=== PATIENT | female | born 1995 | race Caucasian/White ===

== ENCOUNTER 2016-10-20 18:52 | Emergency (ER) | payer SELFPAY ==
[~2016-10-20] VITALS: Ht 162.6 cm; Wt 68.2 kg
[2016-10-20] MEDS ORDERED: IBUPROFEN 600 MG TABLET PO ONE (19:15)
[2016-10-20] MEDS ORDERED: ACETAMINOPHEN 500 MG TABLET PO ONE (19:15)
[2016-10-20] MEDS ORDERED: AMOXICILLIN TRIHYDRATE 250 MG CAPSULE PO ONE (20:15)
[2016-10-20] MEDS ORDERED: DEXAMETHASONE 4 MG TABLET PO ONE (20:15)
[2016-10-20 20:58] VITALS: BP 119/65
== END 2016-10-20 21:02 | disposition home or self-care (01) ==
LOC: EMS 18:55
DX: J02.0 Streptococcal pharyngitis (principal); F17.210 Nicotine dependence, cigarettes, uncomplicated
CPT/HCPCS: 81025; 99284; J8540

== ENCOUNTER 2016-10-30 18:22 | Emergency (ER) | payer SELFPAY ==
[~2016-10-30] VITALS: Ht 162.6 cm; Wt 68.0 kg
[2016-10-30] MEDS ORDERED: IBUPROFEN 600 MG TABLET PO ONE (20:00)
[2016-10-30 21:07] VITALS: BP 143/88
== END 2016-10-30 21:54 | disposition home or self-care (01) ==
LOC: EMS 18:23
DX: S60.211A Contusion of right wrist, initial encounter (principal); F17.210 Nicotine dependence, cigarettes, uncomplicated; Y04.0XXA Assault by unarmed brawl or fight, initial encounter; Y93.89 Activity, other specified; Y92.89 Other specified places as the place of occurrence of the external cause; Y99.8 Other external cause status
CPT/HCPCS: 81025; 99284